=== PATIENT | female | born 1935 | race Caucasian/White ===

== ENCOUNTER 2016-09-27 06:44 | Inpatient (IN) | payer MEDICARE, OTHER, MEDICAID ==
[2016-09-27] MEDS ORDERED: IOPAMIDOL 300 (61%) 100 ML VIAL IV ONE (06:45)
[2016-09-27] MEDS ORDERED: LACTATED RINGERS 1,000 ML ONE ×2 (07:33→12:23)
[2016-09-27] MEDS ORDERED: PROCHLORPERAZINE 5 MG/ML 2 ML VIAL ONE (07:33)
[2016-09-27] MEDS ORDERED: MORPHINE SULFATE 4 MG/ML SYRINGE ONE (07:33)
[2016-09-27 08:10] LABS: ABSOLUTE NEUTROPHIL COUNT 5.6 K/mm3 (1.8-7.7); BASO # 0.1 K/mm3 (0.0-0.2); BASO % 0.9 % (0.2-1.0); EOS # 0.2 (0.0-0.5); EOS % 2.3 % (0.9-2.9); HEMATOCRIT 44.6 % (37.0-47.0); HEMOGLOBIN 15.2 gm/l (12.0-16.0); IMM NEUT # 0.1 K/mm3 (0-0.2); IMM NEUT% 0.9 % (0-1); LYMPH # 0.7 (1.0-4.8); LYMPH % 9.7 % (15-45); MEAN CORPUSCULAR HEMOGLOBIN 33.4 pg (27.0-31.0); MEAN CORPUSCULAR HGB CONC 34.1 g/dl (33.0-37.0); MEAN PLATELET VOLUME 9.5 fl (7.4-10.4); MONO # 0.5 (0.0-0.8); MONO % 6.6 % (4-12); NEUT % 79.6 % (43-75); PLATELET COUNT 201 K/mm3 (130-400); RED CELL DISTRIBUTION WIDTH 13.3 % (11.5-14.5)
[2016-09-27 08:30] LABS: TROPONIN I < 0.01 ng/ml (0.0-0.06)
[2016-09-27 08:32] LABS: ALB/GLOB RATIO 1.4 (>1.0); ALBUMIN 3.7 gm/dL (3.5-5.7); CALCIUM 9.3 mg/dL (8.6-10.3); MAGNESIUM 2.1 mg/dL (1.9-2.7)
[2016-09-27 09:24] LABS: SPECIFIC GRAVITY 1.015 (1.001-1.030); URINE BILIRUBIN NEGATIVE (NEGATIVE); URINE BLOOD 2+ (NEGATIVE); URINE GLUCOSE (UA) NEGATIVE (NEGATIVE); URINE LEUKOCYTE ESTERASE NEGATIVE (NEGATIVE); URINE NITRITE NEGATIVE (NEGATIVE); URINE PROTEIN NEGATIVE (NEGATIVE); URINE UROBILINOGEN NORMAL (0-1 mg/dl)
[2016-09-27 09:26] LABS: URINE APPEARANCE CLEAR; URINE COLOR YELLOW
[2016-09-27 09:34] LABS: URINE BACTERIA NONE SEEN; URINE EPITHELIAL CELLS 0-2 /hpf; URINE WBC 0-2 /hpf
--- NOTE | 2016-09-27 09:37 | RAD ---
EXAMINATION:CHEST - 2 VIEWS CLINICAL INDICATION: Abdominal pain. Epigastric pain. COMPARISON: 12/07/2014. FINDINGS: Cardiomegaly is again noted. There is mild aortic ectasia. There is no adenopathy identified. There is no pleural effusion. Prominent bronchovascular markings are similar. The osseous structures are unremarkable for age. IMPRESSION: Stable cardiomegaly and senescent changes of the chest with no acute process identified.
--- NOTE | 2016-09-27 10:01 | CT ---
EXAMINATION: Contrast enhanced CT scan of the abdomen and pelvis. CLINICAL INDICATION: Abdominal pain since 1:00 AM. COMPARISON: Prior exam dated 09/26/2015. TECHNIQUE: Oral contrast: None Following uneventful administration of 100 mL of Isovue 300, intravenously axial images were acquired from just above the domes of the diaphragm to the iliac crest. A CT scan of the pelvis was also obtained from the iliac crest to the initial tuberosities. Stacked axial, sagittal, and coronal images were reviewed. Findings: Abdomen CT: (Contrast-enhanced): The lung bases are clear and are without mass or pleural effusion. The liver is unremarkable. In the region of a prior colostomy the gallbladder appears to extend through a hernia/defect. There is peripheral gallbladder wall enhancement with adjacent fluid. Bowel is also noted within this defect. There is no evidence of secondary obstruction currently. The spleen size and attenuation are within normal limits. The pancreas is normal in size and contours. No inflammatory stranding is identified. The pancreatic duct is unremarkable. The adrenals are unremarkable. Kidneys are without solid mass or hydronephrosis. Bilateral renal cysts are noted. No perinephric stranding. Mild atherosclerotic plaquing of the abdominal aorta is present. There is no adjacent lymphadenopathy. The stomach appears decompressed. There are dilated loops of small bowel with free fluid noted in the pelvis. Air-fluid levels are evident. There is a transitional segment within the pelvis in the mid portion inferior to the umbilicus. No free air is identified. The osseous structures exhibit no displaced fracture. No lytic or blastic lesions are identified. Pelvic CT: (Contrast -enhanced): The distal ureters and bladder are unremarkable. Uterus is absent. There are no gross adnexal masses. No adenopathy is identified. The distal abdominal aorta and iliac vessels are within normal limits. The large bowel is unremarkable. Stool is noted this region the rectum. Rectal anastomosis surgical changes are noted. No inflammatory stranding is seen adjacent to the cecum. Moderate spondylosis changes lumbar spine are noted. Fat-containing periumbilical hernia is noted. IMPRESSION: 1. Small bowel obstruction. There is transitional segment the midline of the abdomen/pelvis inferior and deep to the umbilicus. There is small bowel distention and free fluid in the pelvis. No free air is identified. 2. Right anterolateral hernia. This is in the region of prior ostomy. Bowel is contained within this distribution and there is also contained gallbladder which appears to exhibit some peripheral enhancement. No common duct obstruction is identified. 3. Atherosclerosis. 4. Bilateral renal cysts. 5. Fat-containing. Umbilical hernia.. 6. Spondylosis changes lumbar spine. Findings were discussed with Dr. Corey at 9:57 AM 09/27/2016
[2016-09-27] MEDS ORDERED: SODIUM CHLORIDE 0.9% 100 ML IV PRN (13:38)
[2016-09-27] MEDS ORDERED: PANTOPRAZOLE SODIUM 40 MG VIAL IV SCH (13:38)
[2016-09-27] MEDS ORDERED: MENTHOL/CETYLPYRD 1 EACH LOZENGE PO PRN (13:38)
[2016-09-27] MEDS ORDERED: BLISTEX LIPSTICK 1 EACH TP PRN (13:38)
[2016-09-27 14:01] VITALS: BMI 26.9
[2016-09-27] MEDS ORDERED: ONDANSETRON 4 MG/2ML 2 ML VIAL IV PRN (14:29)
[2016-09-27] MEDS ORDERED: HYDROMORPHONE HCL 0.5 MG/0.5 ML SYRINGE IV PRN (14:29)
[2016-09-27] MEDS ORDERED: HYDROMORPHONE HCL 1 MG/ML SYRINGE IV PRN (14:39)
[2016-09-27] MEDS ORDERED: PUMP TUBING ONE (14:53)
[2016-09-27] MEDS: D5 1/2NS with 20 mEq KCL 1,000 ML IV SCH ×2 (15:02→23:37)
[2016-09-27] MEDS ORDERED: IV START KIT ONE ×2 (15:17→20:26)
--- NOTE | 2016-09-27 16:17 | HP ---
LOBITO PENALOZA [id number] DATE OF : 1935 DATE OF ADMISSION: 09/27/2016 IDENTIFICATION: Ms. Penaloza is a 81-year-old followed by Dr. Mary Li. CHIEF COMPLAINT: Abdominal pain. HISTORY OF PRESENT ILLNESS: Ms. Penaloza reports sudden onset of epigastric abdominal pain at 1 o'clock this morning. Pain was constant and persistent. She has had some nausea, with a little bit of retching, but no vomiting. Her last bowel movement was yesterday, 09/26/2016, and was normal; but because the pain was not going away she was brought to [facility] Emergency Room. CT scan demonstrates small-bowel obstruction and she was referred to the Hospitalist service for admission. She does have history of multiple abdominal surgeries including surgery for volvulus in 2004. A partial colectomy and colostomy placement for rectal cancer in 2014, and colostomy takedown and reanastomosis approximately 6 months ago in 2015. She has not previously had bowel obstruction, but did have an episode of nonsteroidal induced gastritis and duodenitis one year ago. REVIEW OF SYSTEMS: HEENT: No headache, lightheadedness, or loss of consciousness. Respiratory: No cough, or dyspnea. Cardiac: No chest pain, or palpitations. Gastrointestinal: As per history of present illness. Genitourinary: Denies symptoms. Musculoskeletal: Denies symptoms. Constitutional: No fevers, or chills. She does report about 30 pound weight gain over the course of the last year. PAST MEDICAL HISTORY: 1. Hypertension. 2. Anxiety. 3. Rectal cancer in remission, status post chemotherapy and radiation, surgical excision with colostomy and subsequent reanastomosis. 4. Osteoporosis with sacral insufficiency fracture in July 2015. 5. Gastritis and duodenitis treated in September 2015, and thought to be due to nonsteroidal antiinflammatory use. PAST SURGICAL HISTORY: 1. Exploratory laparotomy and correction of volvulus in 2004. 2. Partial colectomy and ostomy placement in 2014. She had hysterectomy and appendectomy, I believe at the same time. 3. Colostomy take down and reanastomosis approximately 6 months ago. 4. Blepharoplasty. 5. Left ankle open reduction and internal fixation for fracture. 6. Bilateral cataracts. ALLERGIES: REPORTED TO HYDROCODONE, IBUPROFEN, NAPROXEN, AND TRAZODONE UNKNOWN REACTIONS. MEDICATIONS: 1. Carvedilol 25 mg by mouth twice a day. 2. Fish oil supplement one daily. 3. Vitamin B complex one daily. 4. 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 5. Melatonin 10 mg by mouth nightly. 6. One year ago she was discharged on pantoprazole and Carafate, but is apparently not taking those medications at this time. 7. She continues to take Praveena "Back and Body" for musculoskeletal pain although it contains aspirin and she was told to stop taking it when she had gastritis one year ago. HABITS: Remote smoking history. She quit greater than 30 years ago. She does drink one glass of wine most evenings. SOCIAL HISTORY: since 2008. She lives in [facility] independently. Her daughter, Yina, lives nearby. FAMILY HISTORY: Father at age 89. Mother at age 89. She had a son who at age 43 of an oxycodone overdose. PHYSICAL EXAMINATION: GENERAL: This is a pleasant elderly woman. She is comfortable at this time having received morphine IV about 6 hours ago. VITAL SIGNS: Temperature is 97.7 degrees Fahrenheit. Pulse is 52. Blood pressure is 166/74. Respiratory rate is 16. Oxygen saturation is 97% on room air. HEENT: Atraumatic. Pupils equal, round, and reactive. Extraocular muscles are intact status post lens replacement. Oropharynx is moist. NECK: No adenopathy, or bruits. CHEST: Clear to auscultation. HEART: Regular, no murmur. ABDOMEN: Well-healed surgical scars in the midline and right lateral. There is a soft nontender ventral hernia deep to the right lateral scar from her previous colostomy. Bowel sounds are active, not high pitched. There is minimal tenderness in the epigastrium and left lower quadrant to palpation. No masses, other than the hernia appreciated. EXTREMITIES: Good dorsalis pedis pulses. She has some chronic lymphedema, and varicose veins of the legs. No cyanosis, or clubbing. NEUROLOGIC: Alert and oriented. No focal deficits. LABORATORY DATA: White blood cell count is 7, hemoglobin and hematocrit 15.2 and 44.3, and platelets 201. Sodium is 138, potassium 4.1, chloride 104, CO2 of 24, BUN 16, creatinine 0.7, and glucose 116. Liver enzymes are normal. CK-MB is mildly elevated at 9. Troponin I less than 0.01. Urinalysis is negative except for 2+ blood. DIAGNOSTIC IMAGIN. Chest x-ray stable cardiomegaly and senescent changes. No acute process. 2. CT scan of the abdomen and pelvis shows small bowel obstruction with transitional segment in the midline inferior and deep to the umbilicus. There is small bowel distention and free fluid in the pelvis. No free air. The right inferior lateral hernia in the site of the prior ostomy is noted. There is no obstruction at the hernia site. Atherosclerosis, benign renal cysts, fat containing umbilical hernia and spondylolysis incidentally noted. ASSESSMENT: Ms. Penaloza is a 81-year-old with history of multiple previous abdominal surgeries as well as radiation therapy who presents with an acute small-bowel obstruction. She has underlying hypertension, anxiety, history of rectal cancer in remission, and gastritis. PLAN: 1. Admit to med surge. 2. Nothing by mouth status. 3. IV hydration pain and antiemetic medication if needed. 4. Continue Carvedilol, hold other oral medications. 5. FULL CODE status. 6. Venous thrombosis prophylaxis with mechanical means. 7. We will check abdominal x-rays in the morning. If improving, we will consider advancing diet. If not improving, then surgical consultation AKOSUA/doug cc: Mary Li MD
[2016-09-27] MEDS ORDERED: SODIUM CHLORIDE 0.9% FLUSH 10 ML ONE (20:26)
[2016-09-27] MEDS: CARVEDILOL 25 MG TABLET PO SCH ×2 (20:55→21:36)
[2016-09-28 06:14] LABS: ABSOLUTE NEUTROPHIL COUNT 2.5 K/mm3 (1.8-7.7); BASO # 0.1 K/mm3 (0.0-0.2); BASO % 1.3 % (0.2-1.0); EOS # 0.3 (0.0-0.5); EOS % 7.3 % (0.9-2.9); HEMOGLOBIN 13.1 gm/l (12.0-16.0); IMM NEUT% 0.3 % (0-1); LYMPH # 0.7 (1.0-4.8); LYMPH % 18.6 % (15-45); MEAN CELL VOLUME 103.8 fl (81.0-99.0); MEAN CORPUSCULAR HEMOGLOBIN 33.2 pg (27.0-31.0); MEAN PLATELET VOLUME 9.8 fl (7.4-10.4); MONO # 0.4 (0.0-0.8); MONO % 10.6 % (4-12); NEUT % 61.9 % (43-75); PLATELET COUNT 200 K/mm3 (130-400); RED CELL DISTRIBUTION WIDTH 13.6 % (11.5-14.5)
[2016-09-28 06:17] LABS: CALCIUM 10.2 mg/dL (8.6-10.3)
[2016-09-28] MEDS: D5 1/2NS with 20 mEq KCL 1,000 ML IV SCH (07:25)
[2016-09-28] MEDS ORDERED: TRAMADOL HCL 50 MG TABLET PO PRN (07:50)
--- NOTE | 2016-09-28 07:53 | PDOC43 ---
- Subjective Chief Complaint: abdominal pain Denies pain or nausea. Bowel have moved multiple times. Hungry. - Objective Vital Signs Temperature 97.8 F 09/28/16 07:36 Pulse Rate 54 09/28/16 07:36 Respiratory Rate 16 09/28/16 07:36 Blood Pressure 105/45 09/28/16 07:36 O2 Saturation by Pulse Oximetry 97 09/28/16 07:36 Oxygen Delivery Method Room Air Oxygen Flow Rate 0 Intake and Output 09/27/16 09/28/16 09/29/16 06:59 06:59 06:59 Intake Total 3667 Output Total 1775 Balance 1892 General: Alert, Oriented x3, Cooperative, No Acute Distress HEENT: Mucous membr. moist/pink Lungs: Clear to Auscultation Bilaterally Cardiovascular: Regular Rate and Rhythm, Murmur (2/6) Abdomen: Soft, Tenderness (mild), Normal Bowel Sounds, Non-Distended, No Rebounding, No Involuntary Guarding Extremities: Pulses Diminished but Palpable, No Edema Skin: Normal Color Neurological: Normal Speech Psych/Mental Status: Normal Mood Laboratory 09/28/16 05:30 09/28/16 05:30 09/28/16 05:30 RBC 3.95 L MCV 103.8 H MCH 33.2 H MCHC 32.0 L Anion Gap 4 L Estimated GFR 96 H Current Medications: Current meds reviewed in EMR. - Problems: Assessment/Plan (1) SBO (small bowel obstruction) Status: AcuteAssessment/Plan: Clinically resolved, f/u abd 3-way pending, advance to clears. (2) HTN (hypertension), benign Status: ChronicAssessment/Plan: well controlled on carvedilol (3) History of colon cancer Status: ChronicAssessment/Plan: In remission but multiple surgeries and radiation tx are the likely cause of the acute SBO. (4) Osteopenia Qualifiers: Osteopenia location: multiple sites Qualifier Code: (M85.89) Other specified disorders of bone density and structure, multiple sites Status: ChronicAssessment/Plan: Ca/Vit D (5) Gastritis and duodenitis Status: ChronicAssessment/Plan: Resume PPI, avoid NSAIDs VTE Prophylaxis: Mechanical Disposition: Possible D/C home later today if tolerating regular diet.
--- NOTE | 2016-09-28 08:29 | RAD ---
EXAMINATION: ABDOMEN 2 VIEWS W PA CHEST CLINICAL INDICATION: Small bowel obstruction. COMPARISON: CT scan dated 09/27/2016. FINDINGS: Chest: Cardiomediastinal silhouette exhibits no cardiomegaly. There is atherosclerosis with mild aortic ectasia. Prominent bronchovascular markings are noted. No free air is seen beneath the hemidiaphragms. Abdomen: Gas pattern is nonspecific. There are gas-filled loops of small bowel with stool in the distribution of the colon. No air-fluid levels are identified. No free air is currently detected. Osseous structures are unremarkable for age. IMPRESSION: 1. Senescent changes of the chest with no acute cardiopulmonary process identified. 2. Nonspecific/abnormal bowel gas pattern. Postsurgical changes are noted with moderate stool in distribution of the colon. There are gas-filled loops of small bowel with no gross distention. No free air is identified.
[2016-09-28] MEDS ORDERED: CARVEDILOL 25 MG TABLET PO SCH (09:00)
[2016-09-28] MEDS ORDERED: CALCIUM CARBONATE 600 MG/VITAMIN D3 400 UNIT/TABLET PO SCH (09:00)
[2016-09-28] MEDS ORDERED: PANTOPRAZOLE 40 MG TABLET DR PO SCH (09:00)
[2016-09-28] MEDS ORDERED: MAGNESIUM CITRATE 300 ML BOT PO ONE (09:11)
[2016-09-28 09:19] VITALS: BP 159/70
--- NOTE | 2016-09-29 06:47 | DS ---
Shikha Penaloza DATE OF ADMISSION: 09/27/2016 DATE OF DISCHARGE: 09/28/2016 DISCHARGE DIAGNOSES: 1. Small bowel obstruction. 2. Chronic essential hypertension. 3. Osteoporosis. 4. History of rectal carcinoma recurrent in remission. TO SUMMARIZE THE ADMISSION AND HOSPITAL COURSE: The patient is a 81-year-old female who presented with complaints of epigastric abdominal pain, sudden in onset, constant, and persistent associated with nausea. A CT of the abdomen was performed showing evidence of a small bowel obstruction with a transitional segment at the midline of the abdomen. No free fluid was identified. She also had a right anterolateral hernia which was not felt to be the course for the obstruction. She was admitted to the hospitalist service, made nothing by mouth, given IV fluids. Shortly after admission the patient's symptoms improved. She improved more quickly than expected and had several bowel movements. Her diet was advanced. She continued to have good bowel output and resolution of her nausea and pain. A follow up acute abdominal series done on September 28 showed resolution of the obstructive picture on imaging and she was tolerating a regular diet and felt to be stable for discharge. PHYSICAL EXAMINATION: VITAL SIGNS: At discharge showed a temperature of 97.8, pulse 54, blood pressure 159/70, respirations 16, oxygen saturations 97% on room air. Body mass index 27, weight 71.3 kg. GENERAL: This is a mildly obese female in no acute distress. HEENT: Unremarkable. LUNGS: Clear to auscultation bilaterally. CARDIOVASCULAR: Revealed a regular rate and rhythm without a murmur. ABDOMEN: Soft, nontender, nondistended with positive bowel sounds. EXTREMITIES: No peripheral edema. LABORATORY STUDIES: Included a CBC with a white count of 4, hemoglobin 13, platelet count of 200,000. Chemistry profile showed a sodium of 134, potassium 4.2, creatinine 0.6. DISPOSITION: Home. DISCHARGE CONDITION: Good. DISCHARGE DIET: Regular diet. ALLERGIES: DOCUMENTED TO HYDROCODONE, IBUPROFEN, NAPROXEN, AND TRAZODONE. DISCHARGE MEDICATIONS: She will resume her usual home medications. 1. She may want to consider cutting her Imodium dose to 1 mg a day because of some indirect evidence of possible constipation on her images. 2. Melatonin 10 mg at bedtime. 3. Vitamin B complex one daily. 4. Fish oil 1200 mg daily. 5. Coreg 25 mg twice daily. FOLLOW UP: She will follow up with Dr. Mary Li her primary care provider as needed. JOB: [id number] CC: Dr. Mary Li
== END 2016-09-28 15:00 | disposition home or self-care (01) | DRG 390 ==
LOC: ED 06:44 → MS 11:57
PROVIDERS: ADMIT Family Medicine; ATTEND Family Medicine
DX: K56.60 Unspecified intestinal obstruction (principal); I51.7 Cardiomegaly; I77.819 Aortic ectasia, unspecified site; I70.90 Unspecified atherosclerosis; N28.1 Cyst of kidney, acquired; K42.9 Umbilical hernia without obstruction or gangrene; M47.9 Spondylosis, unspecified; I10 Essential (primary) hypertension; F41.9 Anxiety disorder, unspecified; Z85.048 Personal history of other malignant neoplasm of rectum, rectosigmoid junction, and anus; M81.0 Age-related osteoporosis without current pathological fracture; K29.70 Gastritis, unspecified, without bleeding